=== PATIENT | male | born 1985 | race Caucasian/White ===

== ENCOUNTER 2022-01-29 08:53 | Emergency (ER) | payer OTHER ==
[2022-01-29] MEDS ORDERED: Tetracaine 0.5% PF 4 ML BOT ONE (09:21)
[2022-01-29] MEDS ORDERED: Fluorescein Opthalmic Strip ONE (09:21)
== END 2022-01-29 10:40 ==
LOC: CSHERS 08:53 → EEVIPCON 08:53 → CSHERS 10:40
DX: S05.12XA Contusion of eyeball and orbital tissues, left eye, initial encounter (principal); I10 Essential (primary) hypertension; Y04.0XXA Assault by unarmed brawl or fight, initial encounter
CPT/HCPCS: 70486